=== PATIENT | female | born 2000 | race Two or more races ===

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

== ENCOUNTER 2023-09-07 12:51 | Outpatient (CLI) | payer MEDICAID ==
--- NOTE | 2023-09-07 16:07 | XRAY Report ---
PROCEDURE: Knee 3 View LT INDICATIONS: LEFT KNEE PAIN TECHNIQUE: 3 views of the knee(s) were acquired. COMPARISON: None. FINDINGS: Bones: No fractures or dislocations. No suspicious bony lesions. Soft tissues: No knee joint effusion. No suspicious soft tissue calcifications or masses. IMPRESSION: Left knee without acute fracture or dislocation. No significant degenerative changes. If there is continued clinical concern for pathology or occult fracture, consider follow-up imaging w ith repeat radiographs in 10-14 days and possible advanced imaging (CT, MRI, bone scan) if symptoms p ersist. Reviewed by: Sanju Morales MD on 09/07/2023 4:05 PM PST Approved by: Sanju Morales MD on 09/07/2023 4:05 PM PST Station ID: [id number]
== END 2023-09-07 12:52 | disposition home or self-care (01) ==
LOC: DI 12:51
PROVIDERS: ATTEND Family Medicine
DX: M25.562 Pain in left knee (principal); M62.452 Contracture of muscle, left thigh

== ENCOUNTER 2023-09-07 12:55 | Outpatient (CLI) | payer MEDICAID ==
[2023-09-07 13:14] LABS: HCT - HEMATOCRIT 40.3 % (37.0-47.0); HGB - HEMOGLOBIN 13.4 g/dL (12.0-16.0); MEAN CORPUSCULAR HEMOGLOBIN 29.5 pg (27.0-31.0); MEAN CORPUSCULAR HGB CONC 33.3 g/dL (32.0-36.0); MEAN CORPUSCULAR VOLUME 88.6 fL (81.0-99.0); MEAN PLATELET VOLUME 9.4 fL (7.9-10.8); RED BLOOD COUNT 4.55 10^6/uL (4.20-5.40); RED CELL DISTRIBUTION WIDTH 13.2 % (12.0-15.0); WHITE BLOOD COUNT 9.6 x10^3/uL (4.8-10.8)
[2023-09-07 13:28] LABS: ALBUMIN 4.7 g/dL (3.2-5.5); ALBUMIN/GLOBULIN RATIO 1.3 (1.0-2.2); BILIRUBIN,TOTAL 0.5 mg/dL (0.2-1.0); CALCIUM 9.8 mg/dL (8.5-10.3); CREATININE 0.5 mg/dL (0.6-1.3); POTASSIUM 3.5 mmol/L (3.5-4.5); TOTAL PROTEIN 8.3 g/dL (6.4-8.9)
[2023-09-07 13:36] LABS: ESTIMATED AVERAGE GLUCOSE 97 mg/dL (70-100)
[2023-09-07 13:41] LABS: THYROID STIMULATING HORMONE 0.9 uIU/mL (0.34-5.60)
== END 2023-09-07 12:56 | disposition home or self-care (01) ==
LOC: LAB 12:55
PROVIDERS: ATTEND Family Medicine
DX: R53.83 Other fatigue (principal); R45.86 Emotional lability; R63.5 Abnormal weight gain; Z13.6 Encounter for screening for cardiovascular disorders; M25.562 Pain in left knee; M62.452 Contracture of muscle, left thigh
CPT/HCPCS: 36415; 80053; 82670; 83036; 84403; 84443; 85027